=== PATIENT | male | born 1980 | race Caucasian/White ===

== ENCOUNTER 2017-12-15 08:14 | Day surgery (SDC) | payer BC ==
[2017-12-15] MEDS ORDERED: PROPOFOL 20 ML ONE ×2 (08:21)
[2017-12-15 08:30] VITALS: BMI 33.5
[2017-12-15 08:40] VITALS: TEMP 98.1
[2017-12-15 10:09] VITALS: BP 109/71; PULSE 63
== END 2017-12-15 10:10 | disposition home or self-care (01) ==
LOC: FASU-ENDO 08:14
PROVIDERS: ATTEND Internal Medicine Gastroenterology
PROC: 0DJD8ZZ Inspection of Lower Intestinal Tract, Via Natural or Artificial Opening Endoscopic (ICD-10-PCS; principal; 2017-12-15 09:06)
DX: Z86.010 Personal history of colon polyps (principal)